=== PATIENT | male | born 1965 | race Caucasian/White ===

== ENCOUNTER 2023-05-08 12:44 | Day surgery (SDC) | payer SELFPAY ==
[~2023-05-08] VITALS: Ht 190.5 cm; Wt 151.5 kg
[~2023-05-08 12:44] MED LIST: ESCI10 PO; ETOD400 PO
[2023-05-08 14:48] VITALS: BP 126/68
== END 2023-05-08 14:56 | disposition home or self-care (01) ==
LOC: ORSCSDS 12:44
PROVIDERS: Internal Medicine Gastroenterology
PROC: 0DBH8ZX Excision of Cecum, Via Natural or Artificial Opening Endoscopic, Diagnostic (ICD-10-PCS; principal; 2023-05-08 14:15)
PROC: 0DBL8ZX Excision of Transverse Colon, Via Natural or Artificial Opening Endoscopic, Diagnostic (ICD-10-PCS; principal; 2023-05-08 14:15)
PROC: 0DBN8ZX Excision of Sigmoid Colon, Via Natural or Artificial Opening Endoscopic, Diagnostic (ICD-10-PCS; principal; 2023-05-08 14:15)
PROC: 0DBM8ZX Excision of Descending Colon, Via Natural or Artificial Opening Endoscopic, Diagnostic (ICD-10-PCS; principal; 2023-05-08 14:15)
DX: Z12.11 Encounter for screening for malignant neoplasm of colon (principal); Z86.010 Personal history of colon polyps; Z80.0 Family history of malignant neoplasm of digestive organs; D12.0 Benign neoplasm of cecum; D12.3 Benign neoplasm of transverse colon; D12.4 Benign neoplasm of descending colon; K62.1 Rectal polyp; K57.30 Diverticulosis of large intestine without perforation or abscess without bleeding; K64.4 Residual hemorrhoidal skin tags; I10 Essential (primary) hypertension; G47.33 Obstructive sleep apnea (adult) (pediatric); J45.909 Unspecified asthma, uncomplicated; F41.9 Anxiety disorder, unspecified; E66.01 Morbid (severe) obesity due to excess calories; Z68.41 Body mass index [BMI] 40.0-44.9, adult; Z79.899 Other long term (current) drug therapy
CPT/HCPCS: 88305; J0461; J2001; J2250; J2405; J2704; J7120; Q9968

== ENCOUNTER 2024-06-14 09:03 | Day surgery (SDC) | payer SELFPAY ==
[~2024-06-14] VITALS: Ht 190.5 cm; Wt 154.3 kg
[2024-06-14] MEDS ORDERED: ASHWAGANDHA300 MG (09:41)
[2024-06-14] MEDS ORDERED: FLONASE ALLERG9.9 ML (09:41)
[2024-06-14] MEDS ORDERED: Lactated Ringer's 1,000 ML IV ONE ×2 (10:00→12:19)
[2024-06-14] MEDS ORDERED: propofoL 50 ML IV ONE (10:14)
--- NOTE | 2024-06-14 10:26 | NUR ---
06/14/[address] & MICHELLE DAVIDSON NOTIFIED OF PT.'S ELEVATED BP. CHANGED BP CUFF IN ENDO ROOM, BP BETTER.
[2024-06-14 11:42] VITALS: BP 127/79
== END 2024-06-14 11:23 | disposition home or self-care (01) ==
LOC: ORSCSDS 09:03
PROVIDERS: Internal Medicine Gastroenterology
PROC: 0DBL8ZX Excision of Transverse Colon, Via Natural or Artificial Opening Endoscopic, Diagnostic (ICD-10-PCS; principal; 2024-06-14 10:15)
DX: Z86.010 Personal history of colon polyps (principal); D12.3 Benign neoplasm of transverse colon; K57.30 Diverticulosis of large intestine without perforation or abscess without bleeding; K64.4 Residual hemorrhoidal skin tags; K64.8 Other hemorrhoids; Z80.0 Family history of malignant neoplasm of digestive organs; G47.33 Obstructive sleep apnea (adult) (pediatric); I10 Essential (primary) hypertension; E11.9 Type 2 diabetes mellitus without complications; Z68.41 Body mass index [BMI] 40.0-44.9, adult
CPT/HCPCS: 82947; 88305; J2704; J7120